=== PATIENT | male | born 1955 | race Caucasian/White ===

== ENCOUNTER 2017-01-17 09:56 | Day surgery (SDC) | payer BC ==
[~2017-01-17 09:56] MED LIST: Lactated Ringers 1,000 ML IV SCH
[2017-01-17] MEDS ORDERED: Midazolam 1 MG/ML 2 ML SDV ONE (10:16)
[2017-01-17] MEDS ORDERED: Propofol 200 MG/20 ML SDV ONE (10:16)
--- NOTE | 2017-01-17 10:34 | PCM.PREANE ---
Preanesthetic Assessment - Anesthesia/Transfusion/Family Hx Anesthesia History: Prior Anesthesia Without Reaction Family History of Anesthesia Reaction: No Transfusion History: No Prior Transfusion(s) Intubation History: Unknown - Review of Systems General: No Symptoms Pulmonary: No Symptoms Cardiovascular: No Symptoms Gastrointestinal: No Symptoms, Other (screening colonoscopy) Neurological: No Symptoms Other: Reports: None - Physical Assessment O2 Sat by Pulse Oximetry: 98 Respiratory Rate: 16 Vital Signs: Last Vital Signs Temp 36.2 C 01/17/17 10:03 Pulse 48 L 01/17/17 10:03 Resp 16 01/17/17 10:03 BP 137/80 01/17/17 10:03 Pulse Ox 98 01/17/17 10:03 Height: 1.66 m Weight: 78.471 kg ASA Class: 1 Mental Status: Alert & Oriented x3 Airway Class: Mallampati = 2 Dentition: Reports: Dentures (upper and lower) Thyro-Mental Finger Breadths: 3 Mouth Opening Finger Breadths: 3 ROM/Head Extension: Full Lungs: Clear to Auscultation, Normal Respiratory Effort Cardiovascular: Regular Rate, Regular Rhythm - Allergies Allergies/Adverse Reactions: Allergies Allergy/AdvReac Type Severity Reaction Status Date / Time No Known Allergies Allergy Verified 01/15/17 10:06 - Blood Blood Available: No - Anesthesia Plan Pre-Op Medication Ordered: None - Acknowledgements Anesthesia Type Planned: MAC Pt an Appropriate Candidate for the Planned Anesthesia: Yes Alternatives and Risks of Anesthesia Discussed w Pt/Guardian: Yes Pt/Guardian Understands and Agrees with Anesthesia Plan: Yes PreAnesthesia Questionnaire HEENT History: Reports: Cataract Other HEENT History: has upper and lower dentures Cardiovascular History: Reports: None Respiratory History: Reports: Other (See Below) Other Respiratory History: pleural space abscess evacuated by posterior thoracotomy in or Gastrointestinal History: Reports: None Genitourinary History: Reports: None Musculoskeletal History: Reports: Fracture, Other (See Below) Other Musculoskeletal History: hx of fx right ankle, mass removed from left deltoid Neurological History: Reports: None Psychiatric History: Reports: None Endocrine/Metabolic History: Reports: None Hematologic History: Reports: None Immunologic History: Reports: None Oncologic (Cancer) History: Reports: None Dermatologic History: Reports: None - Infectious Disease History Infectious Disease History: Reports: Chicken Pox - Past Surgical History Head Surgeries/Procedures: Reports: None HEENT Surgical History: Reports: Cataract Surgery Respiratory Surgical History: Reports: Thoracotomy Other Respiratory Surgeries/Procedures: drainage of pleural space abscess ( started as abscessed tooth) Male Surgical History: Reports: None Musculoskeletal Surgical History: Reports: ORIF Other Musculoskeletal Surgeries/Procedures:: right ankle (has hardware) Dermatological Surgical History: Reports: Other (See Below) (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 [No Known Home Meds] 06/25/16 [History] - CURRENT (IN HOUSE) MEDS Current Meds: Current Medications Lactated Ringer's (Ringers, Lactated) 1,000 mls @ 125 mls/hr IV ASDIRECTED DUNCAN Last Admin: 01/17/17 10:07 Dose: 125 mls/hr Discontinued Medications Midazolam HCl (Versed 1 Mg/Ml) Confirm Administered Dose 2 mg .ROUTE .STK-MED ONE Stop: 01/17/17 10:17 Propofol (Diprivan 20 Ml) Confirm Administered Dose 400 mg .ROUTE .STK-MED ONE Stop: 01/17/17 10:17
--- NOTE | 2017-01-17 11:51 | PCM.OPNOTE ---
- General Post-Op/Procedure Note Date of Surgery/Procedure: 01/17/17 Operative Procedure(s): Colonoscopy Pre Op Diagnosis: Desire for colorectal cancer screening Post-Op Diagnosis: No evidence of neoplasia Anesthesia Technique: MAC (ASA II) Primary Surgeon: Eitan Ewing Condition: Good Free Text/Narrative:: Dictation [id number] CPT CODE 5378
[2017-01-17] MEDS ORDERED: Lactated Ringers 1,000 ML IV SCH (12:00)
[2017-01-17 12:31] VITALS: BP 103/67
--- NOTE | 2017-01-17 12:58 | OR ---
SURGEON: Eitan Ewing M.D. DATE OF PROCEDURE: 01/17/2017 OPERATION PERFORMED: Colonoscopy. ANESTHESIA: MAC. ASA CLASSIFICATION: II. PREOPERATIVE DIAGNOSIS: Desire for colorectal cancer screening. POSTOPERATIVE DIAGNOSIS: No evidence of neoplasia. DESCRIPTION OF PROCEDURE: The patient was taken to the endoscopy room and positioned on the endoscopy table in the left lateral decubitus position. Time-out was called for appropriate identification of the patient and procedure. Monitored anesthesia care was provided. The colonoscope was inserted into the rectum and advanced without difficulty to the cecum, where the colonoscope was retroflexed to visualize the ascending colon from below. The colonoscope was then straightened and slowly withdrawn. The prep was excellent. Cecum, ascending colon, hepatic flexure, transverse colon, splenic flexure, descending colon, sigmoid colon, and rectum were very well visualized. No tumors, polyps, diverticula, or angiodysplastic changes were noted. Once the colonoscope was withdrawn to the rectum, it was retroflexed to visualize the anal orifice from above. No tumors or polyps were seen, and there were no significant hemorrhoidal changes. The colonoscope was then straightened, the rectum aspirated, and the colonoscope removed. The patient tolerated the procedure well and was taken to the recovery room in a stable condition. PORSCHE / MARTY /[id number]
== END 2017-01-21 12:32 | disposition home or self-care (01) ==
LOC: MW.SDS 09:56
PROVIDERS: ATTEND Surgery
PROC: 0DJD8ZZ Inspection of Lower Intestinal Tract, Via Natural or Artificial Opening Endoscopic (ICD-10-PCS; principal; 2017-01-17)
DX: Z12.11 Encounter for screening for malignant neoplasm of colon (principal); Z98.890 Other specified postprocedural states
CPT/HCPCS: 45378; J2250; J7120; J2704

== ENCOUNTER 2017-02-04 16:53 | Emergency (ER) | payer BC ==
--- NOTE | 2017-02-04 17:04 | EDM.PDOC ---
ED HPI GENERAL MEDICAL PROBLEM - General Stated Complaint: DIZZY/NAUSEOUS Time Seen by Provider: 02/04/17 17:03 Source of Information: Reports: Patient History Limitations: Reports: No Limitations - History of Present Illness INITIAL COMMENTS - FREE TEXT/NARRATIVE: HISTORY AND PHYSICAL: 61-year-old male presents to the emergency room with complaints of dizziness since Friday History of Present Illness: 61-year-old male presents to the emergency room today with complaints of dizziness since Friday. Reports that he was shoveling on Friday afternoon out in the heat for several hours. After that time he became dizzy with position changes and noticed some nausea and felt clammy. States these episodes come and go throughout the day lasting about 10 minutes. She felt the symptoms were related to "heat exhaustion" and since has been trying to increase his water intake. Patient currently denies any chest pain, shortness of breath, fever, chills, GI or symptoms. Denies any cardiac history. Review of Systems: As per history of present illness and below otherwise all systems reviewed and negative. Past medical history: As per history of present illness and as reviewed below otherwise noncontributory. Surgical history: As per history of present illness and as reviewed below otherwise noncontributory. Social history: No reported history of drug or alcohol abuse. Family history: As per history of present illness and as reviewed below otherwise noncontributory. Physical exam: General: Nontoxic-appearing 61-year-old male. Able to speak in full sentences without shortness of breath. Verbalizes anxiety. Alert and oriented HEENT: Atraumatic, normocehpalic, pupils reactive, negative for conjunctival pallor or scleral icterus, mucous membranes moist, throat clear, neck supple, nontender, trachea midline. Unable to visualize the tympanic membranes due to cerumen bilaterally. Lungs: Clear to auscultation, breath sounds equal bilaterally, chest non tender. Heart: S1S2, bradycardiac, negative for clicks, rubs, or JVD. Abdomen: Soft, nondistended, nontender. Negative for masses or hepatossplenmegaly. Negative for costovertebral tenderness. Pelvis: Stable nontender. Genitourinary: Deferred. Rectal: Deferred Extremities: Atraumatic, negative for cords or calf pain. No Peripheral edema noted. Neurovascular unremarkable. Neuro: Awake, alert, oriented. Cranial nerves II through XII unremarkable. Cerebellum unremarkable. Motor and sensory unremarkable throughout. Exam nonfocal. EKG with bradycardia 41-44 bpm. Atropine 0.5 given IV. Patient in sinus rhythm 66-[address] Dang was notified in [facility] emergency room on this patient and he accepted patient for transfer. Diagnostics: [CBC, CMP, troponin, EKG, 1 view chest x-ray, awake overnight monitor] Therapeutics: [IV fluids, atropine] Impression: [#1 dizziness #2 symmetric bradycardia] Plan: []Transfer per ground ambulance to [facility] emergency room Definitive disposition and diagnosis as appropriate pending reevaluation and review of above. Onset: Other (02/02/17) Onset Date: 02/02/17 Duration: Getting Worse - Related Data Allergies Allergy/AdvReac Type Severity Reaction Status Date / Time No Known Allergies Allergy Verified 02/04/17 17:03 Home Meds: Home Meds . [No Known Home Meds] 06/25/16 [History] Past Medical History HEENT History: Reports: Cataract Other HEENT History: has upper and lower dentures Cardiovascular History: Reports: None Respiratory History: Reports: Other (See Below) Other Respiratory History: pleural space abscess evacuated by posterior thoracotomy in or ' Gastrointestinal History: Reports: None Genitourinary History: Reports: None Musculoskeletal History: Reports: Fracture, Other (See Below) Other Musculoskeletal History: hx of fx right ankle, mass removed from left deltoid Neurological History: Reports: None Psychiatric History: Reports: None Endocrine/Metabolic History: Reports: None Hematologic History: Reports: None Immunologic History: Reports: None Oncologic (Cancer) History: Reports: None Dermatologic History: Reports: None - Infectious Disease History Infectious Disease History: Reports: Chicken Pox - Past Surgical History Head Surgeries/Procedures: Reports: None HEENT Surgical History: Reports: Cataract Surgery Respiratory Surgical History: Reports: Thoracotomy Other Respiratory Surgeries/Procedures: drainage of pleural space abscess ( started as abscessed tooth) Male Surgical History: Reports: None Musculoskeletal Surgical History: Reports: ORIF Other Musculoskeletal Surgeries/Procedures:: right ankle (has hardware) Dermatological Surgical History: Reports: Other (See Below) (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 ED EXAM, DIZZINESS - Physical Exam Exam: See Below (see dictation) EKG INTERPRETATION EKG Date: 02/04/17 Time: 17:11 Rhythm: Other (Sinus bradycardia) Rate (Beats/Min): 44 Comparison: NA - No Prior EKG EKG Interpretation Comments: Symptomatic bradycardia Course - Vital Signs Last Recorded V/S: Last Vital Signs Temp 36.1 C 02/04/17 17:03 Pulse 74 02/04/17 18:05 Resp 18 02/04/17 18:05 BP 171/109 H 02/04/17 18:05 Pulse Ox 99 02/04/17 18:05 Orthostatic Blood Pressure [ 175/101 Sitting] Orthostatic Blood Pressure [ 170/100 Supine] - Orders/Labs/Meds Orders: Active Orders 24 hr Category Date Time Status Cardiac Monitoring [RC] . DIRECTED Care 02/04/17 17:09 Active EKG Documentation Completion [RC] STAT Care 02/04/17 17:09 Active EKG Documentation Completion [RC] STAT Care 02/04/17 17:32 Active Orthostatic Vital Signs [RC] ASDIRECTED Care 02/04/17 17:09 Active Chest 1V Frontal [CR] Stat Exams 02/04/17 17:09 Taken Sodium Chloride 0.9% [Saline Flush] Med 02/04/17 17:09 Active 10 ml FLUSH ASDIRECTED PRN Sodium Chloride 0.9% [Saline Flush] Med 02/04/17 17:09 Active 2.5 ml FLUSH ASDIRECTED PRN Saline Lock Insert [OM.PC] Stat Oth 02/04/17 17:09 Ordered Medication Orders Sodium Chloride (Saline Flush) 10 ml FLUSH ASDIRECTED PRN PRN Reason: Keep Vein Open Last Admin: 02/04/17 17:40 Dose: 10 ml Sodium Chloride (Saline Flush) 2.5 ml FLUSH ASDIRECTED PRN PRN Reason: Keep Vein Open Labs: Laboratory Tests 02/04/17 02/04/17 02/04/17 Range/Units 14:16 14:16 14:16 WBC 8.65 (4.0-11.0) K/uL RBC 5.26 (4.50-5.90) M/uL Hgb 16.3 (13.0-17.0) g/dL Hct 46.8 (38.0-50.0) % MCV 89.0 (80.0-98.0) fL MCH 31.0 (27.0-32.0) pg MCHC 34.8 (31.0-37.0) g/dL RDW Std Deviation 40.9 (28.0-62.0) fl RDW Coeff of Sinan 13 (11.0-15.0) % Plt Count 227 (150-400) K/uL MPV 10.40 (7.40-12.00) fL Neut % (Auto) 60.8 (48.0-80.0) % Lymph % (Auto) 29.8 (16.0-40.0) % Hendricks % (Auto) 7.9 (0.0-15.0) % Eos % (Auto) 1.0 (0.0-7.0) % Baso % (Auto) 0.5 (0.0-1.5) % Neut # (Auto) 5.3 (1.4-5.7) K/uL Lymph # (Auto) 2.6 H (0.6-2.4) K/uL Hendricks # (Auto) 0.7 (0.0-0.8) K/uL Eos # (Auto) 0.1 (0.0-0.7) K/uL Baso # (Auto) 0.0 (0.0-0.1) K/uL Nucleated RBC % 0.0 /100WBC Nucleated RBCs # 0 K/uL Sodium 140 (136-146) mmol/L Potassium 3.7 (3.5-5.1) mmol/L Chloride 107 (98-110) mmol/L Carbon Dioxide 21 (21-31) mmol/L BUN 14 (6.0-23.0) mg/dL Creatinine 1.0 (0.6-1.5) mg/dL Est Cr Clr Drug Dosing 68.33 mL/min Estimated GFR (MDRD) > 60.0 ml/min Glucose 97 (60-110) mg/dL Calcium 10.1 (8.8-10.8) mg/dL Total Bilirubin 0.4 (0.1-1.5) mg/dL AST 16 (5-40) IU/L ALT 18 (8-54) IU/L Alkaline Phosphatase 78 (40-150) Troponin I < 0.10 (0.0-0.29) NG/ML Total Protein 7.9 (6.0-8.0) g/dL Albumin 4.7 (3.4-4.8) g/dL Globulin 3.2 (2.0-3.5) g/dL Albumin/Globulin Ratio 1.5 (1.3-2.8) Meds: Medications Generic Name Dose Route Start Last Admin Trade Name Freq PRN Reason Stop Dose Admin Sodium Chloride 10 ml 02/04/17 17:09 02/04/17 17:40 Saline Flush FLUSH 10 ml ASDIRECTED PRN Administration Keep Vein Open Sodium Chloride 2.5 ml 02/04/17 17:09 Saline Flush FLUSH ASDIRECTED PRN Keep Vein Open Discontinued Medications Generic Name Dose Route Start Last Admin Trade Name Freq PRN Reason Stop Dose Admin Atropine Sulfate 0.5 mg 02/04/17 17:17 02/04/17 17:40 Atropine IVPUSH 02/04/17 17:18 Not Given ONETIME ONE Atropine Sulfate Confirm 02/04/17 17:20 02/04/17 17:38 Atropine Administered 02/04/17 17:21 Not Given Dose 0.4 mg .ROUTE .STK-MED ONE Atropine Sulfate 0.5 mg 02/04/17 17:39 02/04/17 17:39 Atropine 0.1 Mg/Ml IVPUSH 02/04/17 17:40 0.5 mg ONETIME ONE Administration Sodium Chloride 1,000 mls @ 999 mls/hr 02/04/17 17:10 02/04/17 17:40 Normal Saline IV 02/04/17 18:10 999 mls/hr STAT ONE Administration Departure - Departure Time of Disposition: 18:33 Disposition: DC/Tfer to Acute Hospital 02 Condition: Fair Clinical Impression: Symptomatic bradycardia - Discharge Information - My Orders Last 24 Hours: My Active Orders 02/04/17 17:09 Cardiac Monitoring [RC] . DIRECTED EKG Documentation Completion [RC] STAT Orthostatic Vital Signs [RC] ASDIRECTED Chest 1V Frontal [CR] Stat Sodium Chloride 0.9% [Saline Flush] 10 ml FLUSH ASDIRECTED PRN Sodium Chloride 0.9% [Saline Flush] 2.5 ml FLUSH ASDIRECTED PRN Saline Lock Insert [OM.PC] Stat 02/04/17 17:32 EKG Documentation Completion [RC] STAT - Assessment/Plan Last 24 Hours: My Active Orders 02/04/17 17:09 Cardiac Monitoring [RC] . DIRECTED EKG Documentation Completion [RC] STAT Orthostatic Vital Signs [RC] ASDIRECTED Chest 1V Frontal [CR] Stat Sodium Chloride 0.9% [Saline Flush] 10 ml FLUSH ASDIRECTED PRN Sodium Chloride 0.9% [Saline Flush] 2.5 ml FLUSH ASDIRECTED PRN Saline Lock Insert [OM.PC] Stat 02/04/17 17:32 EKG Documentation Completion [RC] STAT
[2017-02-04] MEDS ORDERED: Sodium Chloride 0.9% 2.5 ML Syringe FLUSH PRN (17:09)
[2017-02-04] MEDS ORDERED: Sodium Chloride 0.9% 10 ML Syringe FLUSH PRN (17:09)
[2017-02-04] MEDS ORDERED: Sodium Chloride 0.9% 1,000 ML IV ONE (17:10)
[2017-02-04] MEDS ORDERED: Atropine 0.4 MG/ML SDV IVPUSH ONE (17:17)
[2017-02-04] MEDS ORDERED: Atropine 0.4 MG/ML SDV ONE (17:20)
[2017-02-04] MEDS ORDERED: Atropine 0.1 MG/ML 10 ML Syringe IVPUSH ONE (17:39)
[2017-02-04 17:48] LABS: CHLORIDE,CL 107 mmol/L (98-110); SODIUM,NA 140 mmol/L (136-146)
[2017-02-04 18:27] VITALS: BP 171/109
--- NOTE | 2017-02-05 11:20 | CR ---
EXAM DATE: 02/04/17 PATIENT'S AGE: 61 Patient: LEISA MCKEON Facility: [place], [place] Site . Site : [id number] Study: XRay Chest [id number]/[id number] 5:37:57 PM Ordering Physician: Doctor Larsen Final Report: INDICATION: Pain and shortness of breath TECHNIQUE: Chest 1 view. COMPARISON: None FINDINGS: Cardiovascular and mediastinum: Heart size and vasculature are normal in caliber and appearance. Mediastinum is within normal limits. Lungs and pleural space: Lungs are clear. No sign of infiltrate or mass. No sizable pleural effusions. No pneumothorax. Bones and soft tissues: No significant findings. IMPRESSION: Unremarkable chest. Dictated by Arnulfo Pantoja MD @ 02/04/2017 6:01:47 PM Dictated by: Arnulfo Pantoja MD @ 02/04/2017 18:01:52 (Electronic Signature) Report Signed by Proxy. PITA
== END 2017-02-04 18:57 ==
LOC: MW.ED 16:53
DX: R00.1 Bradycardia, unspecified (principal); Z98.49 Cataract extraction status, unspecified eye; Z98.890 Other specified postprocedural states
CPT/HCPCS: 36415; 71010; 80053; 84484; 85025; 93005; 96361; 96374; 99285; J0461; J7040; 99283

== ENCOUNTER 2023-01-12 19:01 | Emergency (ER) | payer MEDICARE, OTHER ==
[2023-01-12] MEDS ORDERED: Diphtheria,Pertussis(Acell),Tetanus Vaccine 0.5 ML Syringe IM ONE (19:42)
[2023-01-12] MEDS ORDERED: Lidocaine 1% PF 2 ML SDV INJECT ONE (20:05)
[2023-01-12 21:29] VITALS: BP 130/90; PULSE 72
== END 2023-01-12 20:55 | disposition home or self-care (01) ==
LOC: MW.ED 19:01
DX: S61.212A Laceration without foreign body of right middle finger without damage to nail, initial encounter (principal); Z23 Encounter for immunization; W45.8XXA Other foreign body or object entering through skin, initial encounter
CPT/HCPCS: 12002; 90471; 90715; 99282-25; 99283; J3490